=== PATIENT | male | born 1960 | race Caucasian/White ===

== ENCOUNTER 2017-09-22 19:06 | Emergency (ER) | payer SELFPAY ==
[2017-09-22 19:09] VITALS: BP 139/106; PULSE 114; RESP 20; TEMP 37.1; O2SAT 97; BMI 25.0
[2017-09-22] MEDS: 0.9% Normal Saline 1,000 ML 1000 ML IV (20:09)
[2017-09-22] MEDS: Ondansetron 4 MG/2 ML Vial IV (20:09)
[2017-09-22 20:31] LABS: Absolute Lymphocyte Count 0.34 X10^3/ul (0.83-4.51); Absolute Neutrophil Count 12.6 X10^3/uL (2.0-7.7); Basophil# 0.02 X10^3/uL; Basophil% 0.1 % (0-1); Differential Indicated SCAN CRITERIA MET; Eosinophil# 0.01 X10^3/uL; Eosinophils% 0.1 % (0-5); Hematocrit 49.3 % (40-54); Hemoglobin 16.5 g/dl (13.0-16.5); Lymphocyte # 0.34 X10^3/ul (4.0); Lymphocyte % 2.5 % (19-41); Mean Corp Hgb Conc 33.5 g/gl (32-36); Mean Corpuscular Hgb 30.8 pg (27.0-32.0); Mean Corpuscular Volume 92.1 fL (80-94); Mean Platelet Vol. 12.4 fl (6.2-12.0); Monocyte# 0.65 X10^3/uL; Monocyte% 4.7 % (0-10); Neutrophil % 92.1 % (47-70); POSITIVE COUNT NO; POSITIVE DIFFERENTIAL YES; POSITIVE MORPHOLOGY NO; Platelet Count 172 K/mm3 (150-450); RBC Distribution Width CV 13.2 % (11.6-14.6); RBC Distribution Width SD 44.3 fl (35.1-43.9); Red Blood Count 5.35 M/mm3 (4.6-6.2); White Blood Count 13.7 K/mm3 (4.4-11.0)
[2017-09-22 20:36] LABS: Anion Gap 9 (5-15); BUN 27 mg/dL (7-18); BUN/Creat Ratio 27.4 RATIO (10-20); Chloride 107 mmol/L (98-107); Creatinine, Serum 0.98 mg/dL (0.70-1.30); EST Glomerular Filtration Rate 83 mL/min (>60); Est Glom Filt Rate - Afr Amer 100 mL/min (>60); Estimated Creatinine Clearance 78.52 ml/min; Glucose 114 mg/dL (74-106); Sodium Level 138 mmol/L (136-145)
--- NOTE | 2017-09-22 21:37 | ED.VISSUMM ---
- ER Visit Summary Date of Service: 09/22/17 Chief Complaint: Nausea, vomiting, diarrhea History of Present Illness: The patient is a 57 M with nausea, vomiting, and diarrhea since last night. His sister with whom he lives is ill with similar. Patient's primary concern is that he cannot get his pain medication down. Patient is a history of reflux disease, hypertension, anxiety, depression. He has chronic lower abdominal and back pain. Physical Examination: Vital signs are significant only for heart rate of 114. He is afebrile. Head and neck examination is unremarkable. Heart is regular rate and rhythm. Lung sounds are clear. Abdomen is soft with mild diffuse tenderness palpation. There is no guarding or rebound. Hypoactive bowel sounds are noted throughout. Test Results: CBC was a white count 13.7 with 92% neutrophils. Chemistry studies are significant only for BUN 27. Emergency Department Course and Treatment: Patient was given morphine, Zofran, and IV fluids. On repeat evaluation he is sleeping comfortably. When I awaken him he states his symptoms are improved. On repeat abdominal exam he has continued lower abdominal tenderness that he states is chronic and unchanged from his normal. Patient be treated with Zofran. He can resume his normal home pain meds. Treatment Plan: [] Disposition: Discharge Impression: Gastroenteritis This note was generated with [employer] dictation software. It may contain incorrect words, spelling, and punctuation that were not noted in review of the chart prior to signing ED Disposition - Plan for ED Patient: Disposition: Home or Assisted Living Chief Complaint: General Illness Prescriptions: Ondansetron [Zofran Odt] 4 mg PO Q8H PRN PRN #10 tablet PRN Reason: Nausea Referrals: Ernie Rowell MD [STAFF PHYSICIAN] - As Needed
[2017-09-22 21:52] VITALS: BP 106/61
[2017-09-22] MEDS: Ondansetron ODT 4 MG Tablet PO (21:52)
== END 2017-09-22 21:53 | disposition home or self-care (01) ==
PROVIDERS: Emergency Provider Emergency Medicine
DX: K52.9 Noninfective gastroenteritis and colitis, unspecified (principal); K21.9 Gastro-esophageal reflux disease without esophagitis; R10.84 Generalized abdominal pain; M54.9 Dorsalgia, unspecified; G89.29 Other chronic pain; Z79.899 Other long term (current) drug therapy
CPT/HCPCS: 80048; 85025; 96361; 96374; 96375; 99283; A4216; J2405

== ENCOUNTER 2018-05-01 16:26 | Emergency (ER) | payer MEDICARE, SELFPAY ==
[2018-05-01 16:27] VITALS: BP 120/74; PULSE 74; RESP 17; TEMP 36.8; O2SAT 98; BMI 24.3
--- NOTE | 2018-05-01 16:39 | ED.VISSUMM ---
- ER Visit Summary Date of Service: 05/01/18 Chief Complaint: Laceration History of Present Illness: The patient is a 57 M with a laceration to his left forehead. This happened 3 hours prior to arrival. A pop can fell from the fridge and hit him. He did not lose consciousness. He is not on blood thinners. Denies any vision changes or other symptoms. No other injuries or complaints. Physical Examination: Patient is alert and oriented. Vitals normal. He has a circular 5 cm ful-thickness laceration through his left eyebrow and left forehead. Eye is normal. The remainder of his exam is unremarkable. Test Results: None indicated Emergency Department Course and Treatment: Tetanus updated. Wound cleaned and explored. Anesthetized. Sutured with 5-0 sutures x6. Patient will follow-up with primary care in 5-7 days for suture removal. Return for signs of infection or any other complications. Treatment Plan: As above Disposition: Discharged Impression: 1. Facial laceration 5 cm This note was generated with [employer] dictation software. It may contain incorrect words, spelling, and punctuation that were not noted in review of the chart prior to signing ED Disposition - Plan for ED Patient: Disposition: Home or Assisted Living Chief Complaint: Laceration Instructions: Suture Care Referrals: Radha Lloyd DO [STAFF PHYSICIAN] - 5 Days for suture removal
--- NOTE | 2018-05-01 16:42 | ED.DCSUM_ITS ---
- ER Visit Summary Date of Service: 05/01/18 Chief Complaint: Laceration History of Present Illness: The patient is a 57 M with a laceration to his left forehead. This happened 3 hours prior to arrival. A pop can fell from the fridge and hit him. He did not lose consciousness. He is not on blood thinner s. Denies any vision changes or other symptoms. No other injuries or complaints. Physical Examination: Patient is alert and oriented. Vitals normal. He has a circular 5 cm ful-thickness laceration through his left eyebrow and left forehead. Eye is normal. The remainder of his exam is unremarkable. Test Results: None indicated Emergency Department Course and Treatment: Tetanus updated. Wound cleaned and explored. Anesthetized. Sutured with 5-0 sutures x6. Patient will follow-up with primary care in 5-7 days for suture removal. Return for signs of infection or any other complications. Treatment Plan: As above Disposition: Discharged Impression: 1. Facial laceration 5 cm This note was generated with [employer] dictation software. It may contain incorrect words, spelling, and punctuation that were not noted in review of the chart prior to signing ED Disposition - Plan for ED Patient: Disposition: Home or Assisted Living Chief Complaint: Laceration Instructions: Suture Care Referrals: Radha Lloyd DO [STAFF PHYSICIAN] - 5 Days for suture removal
--- NOTE | 2018-05-01 16:42 | ED.DEP ---
ED Disposition - Plan for ED Patient: Disposition: Against Medical Advice Chief Complaint: Laceration Instructions: Suture Care Referrals: Radha Lloyd DO [STAFF PHYSICIAN] - 5 Days for suture removal
[2018-05-01 16:48] VITALS: BP 115/68; PULSE 80; RESP 14; O2SAT 98
[2018-05-01] MEDS: Diphth,Pertuss(Acell),Tet Vac 0.5 ML Vial IM (16:54)
[2018-05-01 17:16] VITALS: BP 125/78; PULSE 85; RESP 14; O2SAT 98
== END 2018-05-01 17:35 | disposition home or self-care (01) ==
LOC: ED 16:58
PROVIDERS: Emergency Provider Emergency Medicine
DX: S01.81XA Laceration without foreign body of other part of head, initial encounter (principal); W22.8XXA Striking against or struck by other objects, initial encounter; Y93.9 Activity, unspecified; Y92.9 Unspecified place or not applicable
CPT/HCPCS: 12011; 90471; 90715; 99283

== ENCOUNTER 2020-07-26 13:27 | Emergency (ER) | payer MEDICARE, SELFPAY ==
[2020-07-26 13:28] VITALS: BP 142/85; PULSE 83; RESP 18; TEMP 36.6; O2SAT 97; BMI 24.0
--- NOTE | 2020-07-26 14:15 | RAD_ITS ---
STUDY: X-RAY - LUMBAR SPINE REASON FOR EXAM: Male, 60 years old. Low back pain, weakness TECHNIQUE: 3 view(s) of the lumbar spine were obtained. COMPARISON: None FINDINGS: Normal lumbar lordosis. There is a minimal dextroscoliosis of the lumbar spine. There is a normal alignment of the vertebrae. There is multilevel endplate spondylosis of the lumbar vertebrae. There is multi-level degenerative disc disease with multi-level disc space narrowing. The soft tissue structures are unremarkable. RAD/Lumbar Spine 2 or 3 Views IMPRESSION: Degenerative changes of the spine, as detailed above. Electronically Signed: Adrian Foster, at 14:40 EST , Service support ,
--- NOTE | 2020-07-26 14:15 | ED.VIS.GEN ---
History of Present Illness Chief Complaint: Weakness Informant: Patient Narrative: Patient is a 60-year-old male who presents the emergency department for acute on chronic exacerbation of his low back pain. He has had this for years now. He has seen a specialist up in [place] for this issue. He actually has a new appointment scheduled for August 12. States his pain has become more severe causing him to come into the ED today. The pain does go down both of his legs on the sides. He also gets a numb sensation as well. He has been taking gabapentin for this but it has not been getting much relief lately. He denies any urinary retention. No saddle anesthesia. He does have chronic neck issues as well. States that they were thinking about doing injections versus surgery. He denies any falls or injury. Denies any fevers or chills. No abdominal pain or chest pain. Past Medical History - Allergies and Home Meds Allergies/Adverse Reactions: Allergies No Known Allergies Allergy (Verified 07/26/20 13:31) Primary Care Physician: Care Physician,No Primary [Primary Care Provider] - 2 Days Prior records reviewed: Yes Surgical History: - Smoking Status: Never smoker - Family History Maternal Family History: Family History (Last Updated 05/08/18 @ 12:13 by Cheyanne Chavez) Other CVA (cerebral vascular accident) Cancer Diabetes Family History: Reports: Diabetes, Hypertension Paternal Family History: Family History (Last Updated 05/08/18 @ 12:13 by Cheyanne Chavez) Other CVA (cerebral vascular accident) Cancer Diabetes Family History: Reports: Hypertension Review of Systems All systems negative except as indicated General: Denies: Chills, Fever, Sweats Eyes: Denies: Visual changes - bilaterally, Diplopia ENT: Denies: Rhinorrhea, Sore throat Cardiovascular: Denies: Chest pain, Palpitations Respiratory: Denies: Dyspnea, Cough, Dyspnea on exertion Gastrointestinal: Denies: Abdominal pain, Nausea, Vomiting, Diarrhea Genitourinary: Denies: Dysuria, Hematuria, Frequency Musculoskeletal: Reports: Back pain, Extremity Pain Skin: Denies: Rash, Wounds Neurological: Denies: Headache, Weakness, Numbness Physical Exam Vital Signs/Narrative: Vital Signs Temp Pulse Resp BP Pulse Ox 07/26/20 13:28 97.9 F 83 18 142/85 H 97 Inital Vital Signs reviewed: Yes General: Well nourished, Well developed, No Acute Distress Head: Normocephalic, Atraumatic Eyes: Perrl, EOMI ENT: Moist mucous membranes, No rhinorrhea Neck: Supple, Nontender Cardiovascular: Regular rate, Regular rhythm, No murmurs Respiratory: No distress, CTA bilaterally, Chest nontender Abdomen: Soft, Nontender, Nondistended, Normal bowel sounds Back: Normal Inspection, - - Patient's has tight paraspinal musculature of the lower lumbar spine. No step-off sign appreciated. There is a lipoma present in the mid back.. Negative for: Spinal tenderness Extremities: Nontender, No edema, - - Negative straight leg test but does have pain in the buttock region with leg raising. 5 out of 5 muscle strength. Sensation intact bilateral.. Negative for: Calf Tenderness Skin: Normal color, No rash Neurological: Alert, Oriented x3, Cranial nerves II-XII grossly intact, Normal Strength, Normal Sensation Psychological: Normal affect, Normal Mood Diagnostic/Tx/Re-eval X-ray of lumbar spine interpreted by myself. No acute fractures noted. There are degenerative changes throughout the lumbar spine. Normal spinal curvature present. Agree with radiologist interpretation. - Medical Decision Making Patient presents to the ED for acute on chronic exacerbation of his back pain. This is nontraumatic. Upon arrival to the emerge department vital signs within normal limits. He is a benign physical exam. No red flag symptoms for acute surgical emergency. Will check x-ray as he has not had any imaging done lately. Patient given [place] for symptomatic relief. Patient states that the pain is manageable but still present. He will have to follow-up with his PCP. We will write him a short prescription for [place]. He is to be careful when taking his gabapentin with this as it can make him tired. Warning signs and symptoms which to return to the ED are reviewed with him. He understands and is agreeable this plan. Patient able to walk out on his own power at discharge. All questions were answered. ED Disposition - Plan for ED Patient: Disposition: Home or Assisted Living Diagnosis: Low back pain Instructions: ED Back Pain (Acute or Chronic) Prescriptions: Hydrocodone/Acetaminophen [[place] 5-325 Tablet] 1 ea PO Q8H 3 Days #10 tab Transmission Status: Received by [facility] FELDMAN-[address] [facility] Referrals: Care Physician,No Primary [Primary Care Provider] - 2 Days
[2020-07-26] MEDS: HYDROcodone Bitartrate/Apap 5/325 Tablet PO (14:44)
[2020-07-26 15:45] VITALS: BP 143/74; PULSE 62; RESP 16; O2SAT 96
== END 2020-07-26 16:08 | disposition home or self-care (01) ==
PROVIDERS: Emergency Provider Emergency Medicine
DX: M54.5 Low back pain (principal)
CPT/HCPCS: 72100; 99283

== ENCOUNTER 2021-01-26 02:19 | Emergency (ER) | payer MEDICARE, SELFPAY ==
[2021-01-26 02:19] VITALS: BP 146/92; PULSE 68; RESP 18; TEMP 36.8; O2SAT 98; BMI 26.2
--- NOTE | 2021-01-26 02:49 | ED.VIS.BACK ---
HPI History of Present Illness Chief Complaint: Back Informant: patient Onset/Context/Timing Onset: Today Narrative Narrative: History of chronic back pain with pinched nerves followed by pain management through [facility]. Has had back injections in the past none recently. He is on gabapentin. He reports worsening pain this evening. Pain worse with movement. He was able to come with his sister however report he drove stating she does drive. He used her car. Today with some dysuria and discomfort. Having chills. No fevers. No loss of bowel or bladder control. States had bowel movements at home prior to arrival. States he does have a walker to ambulate with however states he tries not to use it so he does not become dependent on it. Prior similar symptoms: Yes and With Prior Back Pain PFSH PFSH Medical History Arthritis Home Medications gabapentin 600 mg PO TID 07/26/20 [History Last Taken Unknown] cephalexin 500 mg PO Q12 #14 cap 01/26/21 [Rx Last Taken Unknown] Allergy/AdvReac Type Severity Reaction Status Date / Time No Known Allergies Allergy Verified 01/26/21 02:22 Family History Other CVA (cerebral vascular accident) Cancer Diabetes Social History Smoking Status: Never smoker alcohol intake: never ROS ROS ED Constitutional Constitutional ED: Denies chills, fever(s) or sweats Eyes Eyes: Denies change in vision ENT ENT ED: Denies dysphagia or sore throat Cardiovascular Cardiovascular: Denies chest pain, leg edema, palpitations or racing heartbeat Respiratory/Chest Respiratory/Chest: Denies cough, dyspnea or dyspnea on exertion Gastrointestinal Gastrointestinal: Denies abdominal pain, diarrhea, nausea or vomiting Genitourinary Genitourinary ED: Denies dysuria, hematuria or urinary frequency Musculoskeletal Musculoskeletal: Reports back pain; Denies extremity pain or neck pain Integumentary Denies rash or wounds Neurologic Neurologic: Denies headache(s), paresthesias or weakness EXAM Physical Exam Const Vital Signs: 01/26/21 02:19 Temperature 98.3 F Temperature Source Oral Pulse Rate 68 Respiratory Rate 18 Blood Pressure 146/92 H Blood Pressure Mean 110 Pulse Ox 98 Oxygen Delivery Method Room Air Positive well nourished and well developed Constitutional Narrative: Mildly uncomfortable. General Appearance ED: well developed HEENT Reports moist mucous membranes normocephalic and atraumatic Eyes PERRL, EOMs intact bilaterally and conjunctivae normal General Eye ED: Yes normal appearance of both eyes Neck no lymphadenopathy and supple General: Negative for tenderness Chest Wall Chest: Negative for tenderness Resp normal respiratory effort and normal air movement Effort and Inspection: symmetric chest movement; Negative for respiratory distress Cardio regular rate, regular rhythm and no murmurs Peripheral Pulses: pulses 2+ throughout GI normal to inspection, nondistended, normoactive bowel sounds and non-tender Palpation: Negative for guarding or rebound tenderness present Back/Spine no CVA tenderness and no thoracic nor lumbar tenderness Back/Spine Narrative: No midline tenderness no rash. Straight leg test negative bilaterally. 2+ patellar reflexes bilaterally. No CVA tenderness. Extremity normal to inspection General Extremety ED: Negative for edema or tenderness General Extremity: Negative for edema Neuro oriented x3 and no sensory deficits noted Sensorium / Orientation: awake and alert Skin no rashes or lesions noted and no wounds MDM MDM MDM Narrative Medical decision making narrative: Patient acute on chronic back pain. No cauda equina symptoms. Is uncomfortable. Is given Toradol morphine. Symptoms more controlled he is able to ambulate. With the urine symptoms urine obtained noted leukocytes and blood. Reports dysuria. Culture sent. Patient started on Keflex. Follow-up with pain management as an outpatient and his PCP. All questions answered. Lab Data Attestation: I reviewed the patient's lab results. Labs: Laboratory Results - last 24 hr 01/26/21 03:00 Urine Color Yellow Urine Clarity Clear Urine pH 6.5 Ur Specific [place] 1.015 Urine Protein 15 H Urine Glucose (UA) Normal Urine Ketones Negative Urine Occult Blood 250 H Urine Nitrite Negative Urine Bilirubin Negative Urine Urobilinogen 4 H Ur Leukocyte Esterase 25 H Urine RBC 5-10 SEEN Urine WBC 0-5 SEEN Ur Squamous Epith Cells 0 SEEN Urine Bacteria 0 SEEN Urine Mucus 0 SEEN Discharge Plan Triage Chief Complaint: Back ED Provider: Nolan Cowart Dx/Rx/DC Orders Clinical Impression: Acute exacerbation of chronic low back pain, Urinary tract infection in male Instructions: Urinary Tract Infections in Men, ED Back Pain (Acute or Chronic) Prescriptions: New cephalexin 500 mg capsule 500 mg PO Q12 Qty: 14 RF: 0 No Action gabapentin 400 MG capsule 600 mg PO TID RF: 0 Primary Care Provider: Care Physician,No Primary Referrals: Care Physician,No Primary [Primary Care Provider] - Activity Restrictions/Additional Instructions: Follow-up with your pain doctors for further treatment as an outpatient. Take your antibiotic as prescribed. Prescription sent to your [facility]. Disposition Disposition: Home, Self Care
[2021-01-26] MEDS: Ketorolac 30 MG/ML Syringe IM (02:57)
[2021-01-26] MEDS: morphine 10 MG/ML Syringe 4 MG SC (02:57)
[2021-01-26 03:04] LABS: Bacteria 0 SEEN /hpf (None Seen); Mucous, Urine 0 SEEN /hpf (<or=2+); Squamous Epithelial Cells - UA 0 SEEN /hpf (0-5)
[2021-01-26 03:05] LABS: Color, Urine Yellow (Yellow); Glucose, Dipstick Normal (Normal); Ketone-Dipstick Negative (Negative); Leukocyte Esterase-Dipstick 25 /ul (Negative); Nitrite-Dipstick Negative (Negative); Occult Blood-Urine 250 /ul (Negative); Protein-Dipstick 15 mg/dl (Negative); Specific Gravity, Urine 1.015 (1.002-1.030); Urine Bilirubin Dipstick Negative (Negative); Urine Clarity Clear (Clear); Urine Urobilinogen 4 mg/dl (Normal); Urine pH 6.5 (5.0 - 8.0)
[2021-01-26 03:11] LABS: Red Blood Cells-Urine 5-10 SEEN /hpf (0-5); White Blood Cells 0-5 SEEN /hpf (0-5)
[2021-01-26] MEDS: Cephalexin 250 MG Capsule 500 MG PO (03:55)
== END 2021-01-26 04:24 | disposition home or self-care (01) ==
PROVIDERS: Emergency Provider Emergency Medicine
DX: M54.5 Low back pain (principal); G89.29 Other chronic pain; N39.0 Urinary tract infection, site not specified; Z79.899 Other long term (current) drug therapy
CPT/HCPCS: 81001; 87086; 96372; 96374; 99283; A4216

== ENCOUNTER 2022-04-12 21:28 | Emergency (ER) | payer MEDICARE, SELFPAY ==
[2022-04-12 21:29] VITALS: BP 130/64; PULSE 77; RESP 16; TEMP 36.6; O2SAT 98; BMI 25.6
--- NOTE | 2022-04-12 21:57 | EKG12_ITS ---
Test Reason : EDEMA Blood Pressure : / mmHG Vent. Rate : 068 BPM Atrial Rate : 068 BPM P-R Int : 138 ms QRS Dur : 082 ms QT Int : 402 ms P-R-T Axes : 068 008 027 degrees QTc Int : 427 ms Normal sinus rhythm Normal ECG Confirmed by MELIDA ORTEGA MD ([id number]), society editor TACOS SOLORZANO ([id number]) on 04/16/2022 10:49:18 AM Referred By: PL Confirmed By:MELIDA ORTEGA MD
--- NOTE | 2022-04-12 22:03 | ED.VIS.LOWEX ---
HPI History of Present Illness Chief Complaint: Edema Informant: patient and family Narrative Narrative: Patient presents with edema mostly of his left leg. Patient is not the best informant for details. It sounds like he has been getting swelling in the left leg for about 3 weeks. He states sometimes he gets swelling of his legs but never this bad. He has a small amount of swelling in the right leg but that is within his normal range. He denies fevers or chills. He denies injuries. He has no history of travel, surgery, immobilization, personal history of DVT. He does have a sister who reports prior DVTs. He is not having chest pain. He denies dyspnea. But he does have cough and states he has been having nasal congestion and feels as though he has a viral illness also. This has been going on for about 2 weeks. No hemoptysis. No syncope or presyncope. He takes gabapentin but is currently out. He denies any history of heart disease blood pressure diabetes or other chronic illnesses. [facility] Medical History Arthritis Home Medications gabapentin 400 mg capsule 600 mg PO TID 07/26/20 [History Last Taken Unknown] cephalexin 500 mg capsule 500 mg PO Q12 #14 caps 01/26/21 [Rx Last Taken Unknown] levofloxacin 500 mg tablet 500 mg PO DAILY #7 tabs 04/13/22 [Rx Last Taken Unknown] Allergy/AdvReac Type Severity Reaction Status Date / Time No Known Allergies Allergy Verified 04/12/22 21:33 Family History Other CVA (cerebral vascular accident) Cancer Diabetes Social History Smoking Status: Never smoker alcohol intake: never ROS ROS ED Constitutional Constitutional ED: Denies chills, fever(s) or subjective Eyes Eyes: Denies change in vision ENT ENT ED: Reports rhinorrhea; Denies ear pain or sore throat Cardiovascular Cardiovascular: Denies chest pain, palpitations or racing heartbeat Respiratory/Chest Respiratory/Chest: Reports cough and sputum; Denies dyspnea Gastrointestinal Gastrointestinal: Denies abdominal pain, nausea or vomiting Genitourinary Genitourinary ED: Denies hematuria Musculoskeletal Musculoskeletal: Reports other Details: Swelling of left leg as in history of present illness. ; Denies arthralgias, back pain, myalgias or neck pain Integumentary Denies rash Neurologic Neurologic: Denies headache(s), paresthesias or weakness Endocrine Endocrinology: Denies polydipsia or polyuria Hematologic/Lymphatic Hematologic/Lymphatic: Denies easy bleeding or easy bruising Allergic/Immunologic Allergic/Immunologic ED: Denies urticaria EXAM Physical Exam Const Vital Signs: 04/12/22 21:29 04/12/22 21:45 04/12/22 23:17 Temperature 97.9 F Temperature Source Temporal Pulse Rate 77 66 Respiratory Rate 16 16 Respiratory Effort Short of Breath Respiratory Pattern Normal Blood Pressure 130/64 H 143/73 H Blood Pressure Mean 86 96 Pulse Ox 98 98 Oxygen Delivery Method Room Air Room Air Positive well nourished and well developed General Appearance ED: well developed and NAD HEENT Reports moist mucous membranes Chest Wall inspection of chest normal and palpation of chest normal Resp normal respiratory effort, no retractions and clear to auscultation bilaterally Resp Narrative: No pain with deep breath. Auscultation: Negative for rales, rhonchi or wheezes Cardio regular rate, regular rhythm and no murmurs Rate: Negative for tachycardic Rhythm: Negative for abnormal rhythm GI non-tender, non-distended and no masses Back/Spine no CVA tenderness Extremity Extremity Narrative: Patient has trace to +1 edema of the right foot and ankle area. He states this is normal. However, he has had +2 edema and some mild erythema of the left lower leg. This really starts with edema just below the knee and some erythema of the lower pace and foot. It is not hot. No vesicles. I see no break in the skin or indication of acute infection. Neuro Sensorium / Orientation: alert Psych mental status grossly normal Skin Skin Narrative: See above. Lesions: no lesions MDM MDM MDM Narrative Medical decision making narrative: Patient CBC shows normal white count hemoglobin and platelets. D-dimer was elevated above baseline but age-adjusted is not elevated. Electrolytes show no marked abnormalities. Potassium was slightly low and is replaced. Slight elevation of BUN/creatinine ratio. He will be given IV fluids. Lactate is normal. Chest x-ray showed some atelectasis at his left base. COVID was negative. Even of the D-dimer is not elevated age-adjusted, this patient has unilateral edema, some pulmonary symptoms and atelectasis at the lung base. I think it is appropriate to do a CTA on this patient given this unique constellation. He does not have positive Hestia criteria. If he does have a pulmonary embolus, I think he likely could be discharged on anticoagulation. I am pending the study at this time. Patient CT does not show pulmonary embolus. There is a 9 mm spiculated nodule in the right upper lobe. I explained this to the patient. This will need follow-up even of all his symptoms resolved. This is very important to get further evaluation. There is also some groundglass opacity in the left lower lobe. This could be infectious. Since the patient has had some mild cough and felt like he was sick we will treat this as a potential pneumonia. Levaquin should also be reasonable coverage for any cellulitis although I do not think his leg likely represents this. We will have outpatient ultrasound as his legs still needs further evaluation. Lab Data Attestation: I reviewed the patient's lab results. Labs: Laboratory Results - last 24 hr 04/12/22 04/12/22 04/12/22 21:05 21:55 21:55 WBC 6.3 RBC 4.52 L Hgb 13.8 Hct 42.4 MCV 93.8 MCH 30.5 MCHC 32.5 RDW Std Deviation 44.7 H RDW Coeff of Coleen 13.0 Plt Count 208 MPV 11.5 Immature Gran % (Auto) 0.200 Neut % (Auto) 59.1 Lymph % (Auto) 24.2 [place] % (Auto) 14.1 H Eos % (Auto) 2.1 Baso % (Auto) 0.3 Absolute Neuts (auto) 3.7 Absolute Lymphs (auto) 1.51 Nucleated RBC % 0 D-Dimer Quant (PE/DVT) 0.51 H* Sodium Potassium Chloride Carbon Dioxide Anion Gap BUN Creatinine Estim Creat Clear Calc Est GFR (MDRD) Af Amer Est GFR (MDRD) Non-Af BUN/Creatinine Ratio Glucose Lactic Acid Calcium Troponin I High Sens B-Natriuretic Peptide 29.4 04/12/22 04/12/22 21:55 21:55 WBC RBC Hgb Hct MCV MCH MCHC RDW Std Deviation RDW Coeff of Coleen Plt Count MPV Immature Gran % (Auto) Neut % (Auto) Lymph % (Auto) [place] % (Auto) Eos % (Auto) Baso % (Auto) Absolute Neuts (auto) Absolute Lymphs (auto) Nucleated RBC % D-Dimer Quant (PE/DVT) Sodium 142 Potassium 3.3 L Chloride 108 H Carbon Dioxide 27.0 Anion Gap 7 BUN 17 Creatinine 0.71 Estim Creat Clear Calc 82.24 Est GFR (MDRD) Af Amer 143 Est GFR (MDRD) Non-Af 118 BUN/Creatinine Ratio 23.8 H Glucose 95 Lactic Acid 1.4 Calcium 9.0 Troponin I High Sens 6 B-Natriuretic Peptide Radiography Diagnostic Testing: Clinical Impression(s) from Imaging Studies Chest X-Ray 04/12/22 22:15 IMPRESSION: Left lung base atelectasis with mild hypoinflation. Electronically Signed: Chance Lilly MD at 22:39 EDT , Chest CTA 04/12/22 22:43 IMPRESSION: 1. Groundglass opacities at the posterior aspect of the left lower lobe. This may represent an inflammatory or infectious process. 2. Spiculated solid nodule without calcification involving the right upper lobe measuring 9 mm. This can be further investigated with PET/CT. 3. No PE, aortic dissection, or aortic dissection. Electronically Signed: Claudy Johnson MD at 0:09 EDT , EKG Initial EKG: Comments: EKG done for cough and work-up of peripheral edema. EKG shows normal sinus rhythm with an overall rate of 68. No ventricular ectopy. No acute ST elevation or depression. MT interval, QRS duration and QTc normal. Discharge Plan Triage Chief Complaint: Edema ED Provider: Maximilian Vail Dx/Rx/DC Orders Clinical Impression: Leg edema, left, Pneumonia Instructions: ED Peripheral Edema, Unilateral, ED Pneumonia (Adult) Prescriptions: New levofloxacin [levofloxacin] 500 mg tablet 500 mg PO DAILY Qty: 7 0RF No Action gabapentin 400 MG capsule 600 mg PO TID cephalexin 500 mg capsule 500 mg PO Q12 Qty: 14 0RF Other Ambulatory Orders: Venous Duplex US - [place]ell Extrem (Stat) Facility: [facility] - Location: [facility] Ordered By: Dr. Maximilian Vail Primary Care Provider: Care Physician,No Primary Referrals: Radha Lloyd DO [Med Staff - [employer]] - 3-5 Days Care Physician,No Primary [Primary Care Provider] - Activity Restrictions/Additional Instructions: Your CAT scan showed a spot in the right upper lobe that needs further evaluation. Even if all your symptoms resolve, please follow-up with primary physician as this lesion needs further evaluation. We cannot do an ultrasound of your leg tonight. I have this ordered as an outpatient study tomorrow. Disposition Disposition: Home, Self Care
--- NOTE | 2022-04-12 22:15 | RAD_ITS ---
STUDY: X-RAY CHEST REASON FOR EXAM: Male, 61 years old. Cough TECHNIQUE: Portable, upright, AP chest radiograph COMPARISON: None. FINDINGS: Left lung base atelectasis and mild hypoinflation. The right lung appears clear. There is no demonstrated pleural abnormality. Normal size heart. Normal mediastinum and antonia. Normal visualized pulmonary arteries. Normal visualized aortic arch and descending thoracic aorta. There is no demonstrated abnormality of the visualized soft tissue structures of the upper abdomen. RAD/Chest 1 View (Portable) IMPRESSION: Left lung base atelectasis with mild hypoinflation. Electronically Signed: Chance Lilly MD at 22:39 EDT ,
[2022-04-12 22:24] LABS: Absolute Lymphocyte Count 1.51 X10^3/uL (0.83-4.51); Absolute Neutrophil Count 3.7 X10^3/uL (2.0-7.7); Basophil# 0.02 X10^3/uL; Basophil% 0.3 % (0-1); Eosinophil# 0.13 X10^3/uL; Eosinophils% 2.1 % (0-5); Hematocrit 42.4 % (40-54); Hemoglobin 13.8 g/dL (13.0-16.5); Lymphocyte # 1.51 X10^3/ul (0.83-4.51); Lymphocyte % 24.2 % (19-41); Mean Corp Hgb Conc 32.5 g/dL (32-36); Mean Corpuscular Hgb 30.5 pg (27.0-32.0); Mean Corpuscular Volume 93.8 fL (80-94); Mean Platelet Vol. 11.5 fl (6.2-12.0); Monocyte# 0.88 X10^3/uL; Monocyte% 14.1 % (0-10); NRBC Flagged by Analyzer 0 % (0-5); Neutrophil % 59.1 % (47-70); Platelet Count 208 K/mm3 (150-450); RBC Distribution Width SD 44.7 fl (35.1-43.9); Red Blood Count 4.52 M/mm3 (4.6-6.2); White Blood Count 6.3 K/mm3 (4.4-11.0)
[2022-04-12 22:39] LABS: D-Dimer Quantitative (DVT/PE) 0.51 FEU/ug/m (0.27-0.49)
[2022-04-12 22:42] LABS: Anion Gap 7 (5-15); BUN 17 mg/dL (7-18); BUN/Creat Ratio 23.8 RATIO (10-20); Chloride 108 mmol/L (98-107); Creatinine, Serum 0.71 mg/dL (0.70-1.30); EST Glomerular Filtration Rate 118 mL/min (>60); Est Glom Filt Rate - Afr Amer 143 mL/min (>60); Estimated Creatinine Clearance 82.24 ml/min; Glucose 95 mg/dL (74-106); Potassium 3.3 mmol/L (3.5-5.1); Sodium Level 142 mmol/L (136-145); Troponin-I HS 6 pg/mL (3.0-78.0)
--- NOTE | 2022-04-12 22:43 | CT_ITS ---
EXAM: CT ANGIOGRAPHY CHEST WITHOUT AND WITH INTRAVENOUS CONTRAST CLINICAL INDICATION: PE TECHNIQUE: Helically acquired angiography images were obtained of the chest without and with intravenous contrast. CTDIvol = ( 16.46 ) mGy, DLP = ( 414.43 ) mGycm This CT exam was performed using one or more of the following dose reduction techniques: automated exposure control, adjustment of the mA and/or kV according to patient size, and/or use of iterative reconstruction technique. This report was created using [employer] report generation technology. MIP reconstructed images were created and reviewed. CONTRAST: IV 100mL [id number] COMPARISON: None. FINDINGS: PULMONARY ARTERIES: Unremarkable. Normal in caliber. No evidence of pulmonary embolism. AORTA: Unremarkable. Normal in caliber. No evidence of dissection. GREAT VESSELS OF AORTIC ARCH: Unremarkable. Normal in caliber. No evidence of dissection. LUNGS AND PLEURAL SPACES: Spiculated solid nodule without calcification involving the right upper lobe measuring 9 mm. This can be further investigated with PET/CT. Groundglass opacities at the posterior aspect of the left lower lobe. This may represent an inflammatory or infectious process. Mild subsegmental atelectasis at the posterior aspect of the right lower lobe. No pleural effusion or thickening. No pneumothorax. HEART: Unremarkable. Heart size is normal. No pericardial effusion. No signs of right heart strain, ratio of right ventricle to left ventricle measures less than 1. MEDIASTINUM: Unremarkable. No mediastinal or hilar adenopathy. Esophagus is unremarkable. No hiatal hernia. THYROID: 1.8 cm ovoid circumscribed hypodense nodule involving the right thyroid gland. This can be better evaluated with thyroid ultrasound. BONES/JOINTS: Healing rib fractures bilaterally. No suspicious lytic or blastic abnormality. CT/CTA Chest W/WO Contrast IMPRESSION: 1. Groundglass opacities at the posterior aspect of the left lower lobe. This may represent an inflammatory or infectious process. 2. Spiculated solid nodule without calcification involving the right upper lobe measuring 9 mm. This can be further investigated with PET/CT. 3. No PE, aortic dissection, or aortic dissection. Electronically Signed: Claudy Johnson MD at 0:09 EDT ,
[2022-04-12 22:46] LABS: Lactic Acid 1.4 mmol/L (0.4-1.9)
[2022-04-12 23:17] VITALS: BP 143/73; PULSE 66; RESP 16; O2SAT 98
[2022-04-12] MEDS: Potassium Chloride Oral Tablet 20 MEQ PO (23:42)
[2022-04-12 23:47] LABS: BNP,B-Type NATRIURETIC PEPTIDE 29.4 pg/mL (0-100)
[2022-04-13 00:18] VITALS: BP 143/73; PULSE 63; RESP 16; O2SAT 99
[2022-04-13] MEDS: levoFLOXacin 750 MG Tablet PO (00:34)
== END 2022-04-13 00:58 | disposition home or self-care (01) ==
PROVIDERS: Emergency Provider Emergency Medicine; Visit Provider Emergency Medicine
DX: R60.0 Localized edema (principal); J18.9 Pneumonia, unspecified organism
CPT/HCPCS: 71045; 71275; 80048; 83605; 83880; 84484; 85025; 85379; 87428; 93005; 99284; J7040; Q9967; A4216

== ENCOUNTER → 2022-04-13 | Outpatient (CLI) | payer MEDICARE, SELFPAY ==
--- NOTE | 2022-04-13 14:15 | VDLE_ITS ---
Reason For Study: BLE SWELLING RIGHT LEFT GSV is normal. GSV is normal. CFV is compressible, spontaneous, phasic, CFV is compressible, spontaneous, phasic, competent and demonstrates normal competent, and demonstrates normal augmentation. augmentation. FV is compressible, spontaneous, phasic, FV is compressible, spontaneous, phasic, competent and demonstrates normal competent and demonstrates normal augmentation. augmentation. POP V is compressible, spontaneous, phasic, POP V is compressible, spontaneous, phasic, competent and demonstrates normal competent and demonstrates normal augmentation. augmentation. T/P Trunk is compressible. T/P Trunk is compressible. PTV is compressible. PTV is compressible. Procedure This is a venous duplex using B-mode, color flow and spectral Doppler. Exam performed in department. The study was technically difficult. PT had difficulty with probe pressure. Unable to visualize the bilateral Peroneal Veins. VL/Venous Duplex US - [place] Extrem Interpretation Summary Deep veins of the lower extremities are bilaterally patent and compressible seg mentally. There is no evidence of deep vein thrombosis on either side. Valvular competence appears in tact within the proximal deep venous systems bilaterally. The great saphenous veins appear bila terally patent and compressible segmentally. The peroneal veins were not visualized on either side . Ordering Physician: Maximilian Vail Referring Physician: NO PCP Performed By: Sofie Scanlon, PK, RVT
== END | disposition home or self-care (01) ==
PROVIDERS: Referring Provider Emergency Medicine; Visit Provider Emergency Medicine
DX: R60.0 Localized edema (principal)
CPT/HCPCS: 93970

== ENCOUNTER 2022-05-12 19:25 | Emergency (ER) | payer MEDICARE, SELFPAY ==
[2022-05-12 19:26] VITALS: BP 155/82; PULSE 71; RESP 16; TEMP 36.6; O2SAT 100; BMI 25.4
--- NOTE | 2022-05-12 20:12 | EDS_ITS ---
HPI History of Present Illness Chief Complaint: Edema Detail of Chief Complaint: Lower extremity edema left greater than right Informant: patient Onset/Context/Timing Onset: Weeks Context: Gradual Onset Timing: Continuous Current Severity: Mild Maximum Severity: Mild Narrative Narrative: 61-year-old male history of lower extremity edema for weeks to months. He has had ultrasounds done 3 to 4 weeks ago which were negative for any signs of DVT. States that he has had some chills. And he just wanted reevaluated. There is redness on his left lower leg. Denies any fever. Prior similar symptoms: Yes Recent Illness/Hospitalization: No PFSH PFSH Medical History Arthritis Home Medications gabapentin 400 mg capsule 600 mg PO TID 07/26/20 [History Last Taken Unknown] acetaminophen 325 mg tablet (Tylenol) 325 mg PO Q6H PRN Pain 05/12/22 [History Last Taken Unknown] cephalexin 500 mg capsule 500 mg PO Q6 #40 caps 05/12/22 [Rx Last Taken Unknown] Allergy/AdvReac Type Severity Reaction Status Date / Time No Known Allergies Allergy Verified 05/12/22 19:28 Family History Other CVA (cerebral vascular accident) Cancer Diabetes Social History Smoking Status: Never smoker alcohol intake: never ROS ROS ED ROS Narrative Lower leg swelling. Review of Systems ROS Unobtainable: Denies due to encephalopathy Constitutional Constitutional ED: Reports chills; Denies fever(s) Eyes Eyes: Denies blurry vision ENT ENT ED: Denies ear pain Cardiovascular Cardiovascular: Denies chest pain Respiratory/Chest Respiratory/Chest: Denies cough or dyspnea Gastrointestinal Gastrointestinal: Denies abdominal pain Genitourinary Genitourinary ED: Denies dysuria Musculoskeletal Musculoskeletal: Denies arthralgias Integumentary Denies abscess or Abrasions Neurologic Neurologic: Denies headache(s) Psychiatric Psychiatric: Denies anxiety Endocrine Endocrinology: Denies cold intolerance Hematologic/Lymphatic Hematologic/Lymphatic: Reports none Allergic/Immunologic Allergic/Immunologic ED: Denies mouth swelling or tongue swelling EXAM Physical Exam Narrative Exam Narrative: Well-appearing C1-year-old male no acute distress. Vital signs stable afebrile. Pulse ox 9%. No hypoxia. H EENT exam unremarkable. Posterior pharynx normal. Neck nontender. No JVD. Lungs clear to auscultation. Heart regular rate and rhythm rate about 70 no murmur. Abdomen soft nontender. Moving all 4 extremities. Both lower extremities have edema. Left greater than right. Left has some redness and warmth may be an early cellulitis. Dorsi plantar flexion is intact. Patient is awake and alert. No motor deficits. Const Vital Signs: 05/12/22 19:26 05/12/22 19:52 Temperature 98 F Temperature Source Temporal Pulse Rate 71 Respiratory Rate 16 Respiratory Effort Normal Respiratory Pattern Normal Blood Pressure 155/82 H Blood Pressure Mean 106 Pulse Ox 100 Oxygen Delivery Method Room Air Positive well nourished and well developed; Negative for obese, cachectic, contractures or unkempt General Appearance ED: well developed and NAD; Negative for unkempt, cachectic, contractures, cyanotic or diaphoretic Nutritional Appearance: Negative for cachectic or obese HEENT Reports moist mucous membranes; Denies dry mucous membranes Negative for trauma or tenderness Mouth ED: No dry mucous membranes Mouth: No dry mucous membranes Eyes PERRL and EOMs intact bilaterally General Eye ED: Negative for pale conjunctiva or scleral icterus Neck no lymphadenopathy, supple and no JVD General: Negative for tenderness Lymph Lymphatic: Negative for other Chest Wall inspection of chest normal and palpation of chest normal Resp normal respiratory effort and clear to auscultation bilaterally Effort and Inspection: Negative for retractions Auscultation: Negative for rales, rhonchi or wheezes Cardio regular rate, regular rhythm, S1 normal heart sound, S2 normal heart sound and no murmurs Palpation: Negative for palpable S3 Rate: Negative for bradycardia Rhythm: Negative for abnormal rhythm GI normal to inspection, nondistended, normoactive bowel sounds, non-tender, non- distended and no masses Inspection: Negative for abdominal distention Auscultation: normoactive bowel sounds Palpation: soft; Negative for tender Back/Spine no CVA tenderness General Back: Negative for CVA tenderness Cervical Spine: Negative for cervical spine tenderness Thoracic Spine / Upper Back: Negative for thoracic spinal tenderness Lumbar Spine / Lower Back: Negative for lumbar spinal tenderness Extremity Negative for normal to inspection Extremity Narrative: Bilateral lower extremity edema. Left greater than right. Redness on the left anterior lower leg consistent with cellulitis. No streaks. No lymphadenopathy in the left groin. Both legs have normal motor strength. General Extremety ED: Yes edema and tenderness General Extremity: edema Neuro oriented x3 Sensorium / Orientation: alert; Negative for orientation impaired, lethargic or stuporous Motor Exam: strength 5/5 throughout Psych mental status grossly normal Appearance: Negative for unkempt Attitude: No agitated Mood & Affect: Negative for depressed, anxious or tearful Skin No no rashes or lesions noted and no wounds Lesions: No lesion noted Rashes: rashes noted Trauma: Negative for abrasion Wounds: Negative for wounds noted MDM MDM MDM Narrative Medical decision making narrative: Patient with acute on chronic lower extremity edema. Ultrasounds have been ruled out several weeks ago. He may have an early cellulitis left lower leg. Screening labs being obtained. Repeat exam at 10:20 PM I do believe patient's left lower leg is cellulitis. She will be given a dose of Keflex here. And discharged to home with a prescription for Keflex 4 times a day for 10 days. Return if worse. Follow-up with his doctor. He does not look septic or toxic. I discussed with him the diagnosis and treatment. Lab Data Attestation: I reviewed the patient's lab results. Lab results narrative: CBC shows a white count of 6. H&H of 13 and 42. Electrolytes unremarkable gap of 7 BUN/creatinine 21 0.7. Liver enzymes normal. Labs: Laboratory Results - last 24 hr 05/12/22 05/12/22 20:10 20:10 WBC 6.0 RBC 4.53 L Hgb 13.7 Hct 42.5 MCV 93.8 MCH 30.2 MCHC 32.2 RDW Std Deviation 44.4 H RDW Coeff of Coleen 12.9 Plt Count 213 MPV 11.5 Immature Gran % (Auto) 0.500 Neut % (Auto) 71.8 H Lymph % (Auto) 12.4 L [place] % (Auto) 13.5 H Eos % (Auto) 1.3 Baso % (Auto) 0.5 Absolute Neuts (auto) 4.3 Absolute Lymphs (auto) 0.74 L Nucleated RBC % 0 Sodium 141 Potassium 3.9 Chloride 107 Carbon Dioxide 27.0 Anion Gap 7 BUN 21 H Creatinine 0.70 Estim Creat Clear Calc 79.90 Est GFR (MDRD) Af Amer 147 Est GFR (MDRD) Non-Af 122 BUN/Creatinine Ratio 30.2 H Glucose 89 Calcium 9.2 Total Bilirubin 0.40 AST 20 ALT 31 Alkaline Phosphatase 53 Total Protein 7.1 Albumin 3.7 Globulin 3.4 Albumin/Globulin Ratio 1.1 Discharge Plan Triage Chief Complaint: Edema ED Provider: Mike York Dx/Rx/DC Orders Clinical Impression: Left leg cellulitis, Edema Instructions: ED Cellulitis Prescriptions: New cephalexin 500 mg capsule 500 mg PO Q6 Qty: 40 0RF No Action gabapentin 400 MG capsule 600 mg PO TID acetaminophen [Tylenol] 325 mg Tablet 325 mg PO Q6H PRN (Reason: Pain) Primary Care Provider: Care Physician,No Primary Referrals: Care Physician,No Primary [Primary Care Provider] - Activity Restrictions/Additional Instructions: Follow-up with your doctor this coming week. Return if worse. Keflex, the antibiotic, 4 times a day till gone. Disposition Disposition: Home, Self Care
[2022-05-12 20:40] LABS: Absolute Lymphocyte Count 0.74 X10^3/uL (0.83-4.51); Absolute Neutrophil Count 4.3 X10^3/uL (2.0-7.7); Basophil# 0.03 X10^3/uL; Basophil% 0.5 % (0-1); Eosinophil# 0.08 X10^3/uL; Eosinophils% 1.3 % (0-5); Hematocrit 42.5 % (40-54); Hemoglobin 13.7 g/dL (13.0-16.5); Lymphocyte # 0.74 X10^3/ul (0.83-4.51); Lymphocyte % 12.4 % (19-41); Mean Corp Hgb Conc 32.2 g/dL (32-36); Mean Corpuscular Hgb 30.2 pg (27.0-32.0); Mean Corpuscular Volume 93.8 fL (80-94); Mean Platelet Vol. 11.5 fl (6.2-12.0); Monocyte# 0.81 X10^3/uL; Monocyte% 13.5 % (0-10); NRBC Flagged by Analyzer 0 % (0-5); Neutrophil % 71.8 % (47-70); Platelet Count 213 K/mm3 (150-450); RBC Distribution Width CV 12.9 % (11.6-14.6); RBC Distribution Width SD 44.4 fl (35.1-43.9); Red Blood Count 4.53 M/mm3 (4.6-6.2)
[2022-05-12 21:06] LABS: ALB/GLOB Ratio 1.1 RATIO (0.9-2.4); AST(SGOT) 20 U/L (15-37); Alanine Aminotransfer ALT/SGPT 31 U/L (16-61); Albumin, Serum 3.7 g/dL (3.2-5.0); Alkaline Phosphatase 53 U/L (45-117); Anion Gap 7 (5-15); BUN 21 mg/dL (7-18); BUN/Creat Ratio 30.2 RATIO (10-20); Calcium,Total 9.2 mg/dL (8.5-10.1); Chloride 107 mmol/L (98-107); EST Glomerular Filtration Rate 122 mL/min (>60); Est Glom Filt Rate - Afr Amer 147 mL/min (>60); Globulin 3.4 g/dL (2.2-4.2); Glucose 89 mg/dL (74-106); Potassium 3.9 mmol/L (3.5-5.1); Protein, Total 7.1 g/dL (6.4-8.2); Sodium Level 141 mmol/L (136-145)
[2022-05-12 21:25] VITALS: BP 137/85; PULSE 100; RESP 20; TEMP 36.6; O2SAT 98
[2022-05-12] MEDS: Cephalexin 250 MG Capsule 500 MG PO (22:48)
[2022-05-12 22:55] VITALS: BP 135/88; PULSE 98; RESP 18; TEMP 36.5; O2SAT 98
--- NOTE | 2022-05-12 23:22 | NURSING ---
WAITING FOR MEDS TO BED.
--- NOTE | 2022-05-12 23:34 | NURSING ---
MED TO BED DELIVERED. PT AND FAMILY EDUCATED ON MEDS AND DC HOME. VERBALIZED UNDERSTANDING.
== END 2022-05-12 23:34 | disposition home or self-care (01) ==
PROVIDERS: Emergency Provider Emergency Medicine; Visit Provider Emergency Medicine
DX: L03.116 Cellulitis of left lower limb (principal); R60.0 Localized edema; M19.90 Unspecified osteoarthritis, unspecified site; Z79.899 Other long term (current) drug therapy
CPT/HCPCS: 80053; 85025; 99284; A4216

== ENCOUNTER 2022-09-22 08:12 | Emergency (ER) | payer MEDICARE, SELFPAY ==
[2022-09-22 08:13] VITALS: BP 176/90; PULSE 82; RESP 16; TEMP 36.6; O2SAT 98; BMI 27.4
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
[2022-09-22] MEDS: HYDROcodone Bitartrate/Apap 5/325 Tablet PO (08:42)
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
[2022-09-22 08:44] VITALS: BP 118/78; PULSE 78; RESP 16; TEMP 36.6; O2SAT 99
--- NOTE | 2022-09-22 09:21 | ED.RN ---
hro, officer dominique to talked to patient .
--- NOTE | 2022-09-22 09:38 | ED.RN ---
officer dominique finished talking to pt. states pt. good to go.
== END 2022-09-22 09:38 | disposition home or self-care (01) ==
PROVIDERS: Emergency Provider Emergency Medicine; Visit Provider Emergency Medicine
DX: S20.229A Contusion of unspecified back wall of thorax, initial encounter (principal); Y04.8XXA Assault by other bodily force, initial encounter
CPT/HCPCS: 99283; J7030

== ENCOUNTER 2022-09-28 07:22 | Emergency (ER) | payer MEDICARE, SELFPAY ==
[2022-09-28 07:22] VITALS: BP 144/89; PULSE 69; RESP 18; TEMP 35.7; O2SAT 97; BMI 28.5
--- NOTE | 2022-09-28 07:39 | RAD_ITS ---
STUDY: X-RAY - CERVICAL SPINE REASON FOR EXAM: Male, 62 years old. Injury/Pain due to a fall. TECHNIQUE: 3 view(s) of the cervical spine were obtained. COMPARISON: None FINDINGS: Normal anterior atlantoaxial articulation. Normal odontoid process. There is straightening of the normal cervical lordosis. Anterior spondylosis and disc space narrowing at the C4-C5 and C5-C6 levels. Normal visualized intervertebral neuroforamina. The soft tissue structures are unremarkable. RAD/Cerv Spine 2 or 3 Views IMPRESSION: Straightening of the normal cervical lordosis. Disc space narrowing and spondylosis at the C4-C5 and C5-C6 levels. Electronically Signed: Adrian Foster MD at 8:24 EST ,
--- NOTE | 2022-09-28 07:39 | RAD_ITS ---
STUDY: X-RAY - LUMBAR SPINE REASON FOR EXAM: Male, 62 years old. Injury/Pain TECHNIQUE: 3 view(s) of the lumbar spine were obtained. COMPARISON: Comparison is made with prior study dated 07/26/2020. FINDINGS: Normal lumbar lordosis. There is a mild dextroscoliosis of the lumbar spine. There is a normal alignment of the vertebrae. There is multilevel endplate spondylosis of the lumbar vertebrae. There is multi-level degenerative disc disease with multi-level disc space narrowing. The patient is status post laminectomy at the L3-L4 and L4-L5 levels. Facet joint osteoarthritis. Large amount of fecal material is seen throughout the colon. Findings suggestive of a 3 mm calculus in the midportion of the right kidney. RAD/Lumbar Spine 2 or 3 Views IMPRESSION: Degenerative changes of the spine, as detailed above. Stable examination. Electronically Signed: Adrian Foster MD at 8:34 EST ,
--- NOTE | 2022-09-28 07:39 | CT_ITS ---
STUDY: CT BRAIN WITHOUT CONTRAST REASON FOR EXAM: Male, 62 years old. Injury/Pain due to a fall. RADIATION DOSAGE (If Supplied By Facility): CTDIvol = ( 44.99 ) mGy, DLP = ( 846.73 ) mGycm TECHNIQUE: Transaxial CT imaging of the brain was performed without administration of intravenous contrast material. Individualized dose optimization techniques were used for this CT. COMPARISON: No relevant priors. FINDINGS: Normal soft tissue structures. Normal calvarium. There is mild cerebral atrophy with widening of the extra-axial spaces and ventricular dilatation. Normal white matter tracts of the cerebral hemispheres. Normal basal ganglia and thalami. Normal brainstem. Normal cerebellum. There is no intracranial hemorrhage. There are no findings of an acute ischemic infarction. Normal visualized paranasal sinuses. CT/Brain/Head without Contrast IMPRESSION: Chronic involutional changes of the brain. Electronically Signed: Adrian Foster MD at 8:07 EST ,
--- NOTE | 2022-09-28 07:40 | ED.VIS.FALL ---
HPI HPI - Fall History of Present Illness Chief Complaint: Fall Informant: patient Narrative Narrative: Patient is a 62-year-old male with history of spinal surgery at [facility] with chronic wound on his back that is cared for by wound care/home health. He is presenting after a fall. Patient states he hurts at the outside and when he went to check he walked down the one step on the cement pad and somehow slipped and fell. He fell backwards. He did hit the back of his head. He states he does have some pain in the back of his head but also wants to make sure that his lumbar spine is okay since he had this recent surgery and he did hit the area. Denies any significant pain at this time. Has some chronic paresthesias of his right thigh which are unchanged. No other injuries. Is on any blood thinners. Does not report any loss of consciousness. No other complaints at this time. [facility] Medical History Arthritis Home Medications gabapentin 400 mg capsule 600 mg PO TID 07/26/20 [History Last Taken Unknown] acetaminophen 325 mg tablet (Tylenol) 325 mg PO Q6H PRN Pain 05/12/22 [History Last Taken Unknown] cephalexin 500 mg capsule 500 mg PO Q6 #40 caps 05/12/22 [Rx Last Taken Unknown] furosemide 20 mg tablet 20 mg PO DAILY 09/28/22 [History Last Taken Unknown] methocarbamol 750 mg tablet 750 mg PO Q6H 09/28/22 [History Last Taken Unknown] tamsulosin 0.4 mg capsule 0.4 mg PO DAILY 09/28/22 [History Last Taken Unknown] Allergy/AdvReac Type Severity Reaction Status Date / Time No Known Allergies Allergy Verified 09/22/22 08:15 Family History Other CVA (cerebral vascular accident) Cancer Diabetes Social History Smoking Status: Never smoker alcohol intake: never ROS ROS ED Constitutional Constitutional ED: Denies chills or fever(s) Eyes Eyes: Denies change in vision ENT ENT ED: Denies ear pain Cardiovascular Cardiovascular: Denies chest pain Respiratory/Chest Respiratory/Chest: Denies cough Gastrointestinal Gastrointestinal: Denies nausea or vomiting Musculoskeletal Musculoskeletal: Reports back pain and neck pain Neurologic Neurologic: Reports headache(s) and paresthesias; Denies weakness Psychiatric Psychiatric: Denies anxiety Hematologic/Lymphatic Hematologic/Lymphatic: Denies easy bruising EXAM Physical Exam Const Vital Signs: 09/28/22 07:22 09/28/22 09:07 Temperature 96.2 F L Temperature Source Temporal Pulse Rate 69 82 Respiratory Rate 18 16 Blood Pressure 144/89 H 138/77 H Blood Pressure Mean 107 Pulse Ox 97 97 Oxygen Delivery Method Room Air Positive well nourished and well developed General Appearance ED: well developed and NAD HEENT Reports normocephalic HEENT Narrative: Cerumen impaction in the right ear unable to visualize panic membrane. Normal left tympanic membrane. No epistaxis or rhinorrhea present. No malocclusion. atraumatic; Negative for hematoma Eyes PERRL and EOMs intact bilaterally Neck full ROM and supple General: Negative for tenderness Chest Wall inspection of chest normal and palpation of chest normal Resp normal respiratory effort Cardio regular rate, regular rhythm and no murmurs GI non-tender and non-distended Back/Spine Back/Spine Narrative: Lumbar midline surgical incision with a 1 cm chronic appearing wound that is draining some serous fluid. No surrounding erythema, purulence or other signs of infection. No significant tenderness of the paraspinal region. Normal range of motion. Cervical Spine: Negative for cervical spine tenderness Thoracic Spine / Upper Back: Negative for ROM limited Lumbar Spine / Lower Back: Negative for lumbar spinal tenderness or paraspinal muscle tenderness Neuro oriented x3, CN's II-XII intact bilaterally, moves all extremities and no focal motor deficits Neuro Narrative: Subjective paresthesias of the right inner thigh, chronic per patient [place] Coma Scale: document GCS findings Spontaneous Obeys Commands Oriented 15 Sensorium / Orientation: alert Skin Skin Narrative: Chronic wound of the lumbar spine approximately level of L 3. Does not appear infected. Rashes: no rashes Trauma: Negative for abrasion or laceration MDM MDM MDM Narrative Medical decision making narrative: Patient evaluated after mechanical fall. No reported loss of consciousness. CT of the head is obtained as well as x-ray of the C-spine and x-ray of the lumbar spine to ensure there is no acute fracture or intracranial trauma. No signs of lacerations, abrasions or contusions on physical exam. These are negative patient can be discharged home. CT brain shows chronic changes but no acute process. X-ray of the lumbar and cervical spine to read by myself as well as radiology shows no acute fracture. Patient will be discharged home. He has gabapentin and Tylenol to take at home. Patient able to ambulate. Has assistive devices at home to use as needed. Radiography Diagnostic Testing: Clinical Impression(s) from Imaging Studies Brain CT 09/28/22 07:39 IMPRESSION: Chronic involutional changes of the brain. Electronically Signed: Adrian Foster MD at 8:07 EST , Cervical Spine X-Ray 09/28/22 07:39 IMPRESSION: Straightening of the normal cervical lordosis. Disc space narrowing and spondylosis at the C4-C5 and C5-C6 levels. Electronically Signed: Adrian Foster MD at 8:24 EST , Lumbar Spine X-Ray 09/28/22 07:39 IMPRESSION: Degenerative changes of the spine, as detailed above. Stable examination. Electronically Signed: Adrian Foster MD at 8:34 EST , Discharge Plan Triage Chief Complaint: Fall Other Complaint: Back ED Provider: Audrey Augustin Dx/Rx/DC Orders Clinical Impression: Fall, Closed head injury, Cervical muscle strain, Wound of back Instructions: ED Back Contusion, ED Mechanical Fall, ED Neck Sprain or Strain Prescriptions: No Action gabapentin 400 MG capsule 600 mg PO TID acetaminophen [Tylenol] 325 mg Tablet 325 mg PO Q6H PRN (Reason: Pain) cephalexin 500 mg capsule 500 mg PO Q6 Qty: 40 0RF methocarbamol 750 mg tablet 750 mg PO Q6H Label Comments: take 1 tablet by mouth four times a day tamsulosin 0.4 mg capsule 0.4 mg PO DAILY furosemide 20 mg tablet 20 mg PO DAILY Primary Care Provider: Care Physician,No Primary Referrals: Care Physician,No Primary [Primary Care Provider] - Activity Restrictions/Additional Instructions: Please follow-up with your primary care doctor. There does not appear to be any acute fracture or injury from your fall today. You likely will be sore. Continue taking her Tylenol and other medications as needed. Follow-up with your primary care doctor. Disposition Disposition: Home, Self Care Discharge Date/Time: 09/28/22 09:08
[2022-09-28 09:07] VITALS: BP 138/77; PULSE 82; RESP 16; O2SAT 97
== END 2022-09-28 09:08 | disposition home or self-care (01) ==
PROVIDERS: Emergency Provider Emergency Medicine; Visit Provider Emergency Medicine
DX: S09.90XA Unspecified injury of head, initial encounter (principal); S16.1XXA Strain of muscle, fascia and tendon at neck level, initial encounter; W10.9XXA Fall (on) (from) unspecified stairs and steps, initial encounter; Z79.899 Other long term (current) drug therapy
CPT/HCPCS: 70450; 72040; 72100; 99282

== ENCOUNTER 2022-12-30 03:50 | Emergency (ER) | payer MEDICARE, SELFPAY ==
[2022-12-30 03:50] VITALS: BP 122/85; PULSE 90; RESP 97; TEMP 36.5; BMI 25.6
--- NOTE | 2022-12-30 04:21 | EDS_ITS ---
HPI History of Present Illness Chief Complaint: Back Narrative Narrative: 62-year-old male with acute on chronic back pain. Patient states he woke up yesterday morning around 7 with right sided back pain. Its aching in nature. It is worse when he tries to get up and move. He denies any trauma. No loss of bladder or bowel control. No saddle anesthesia/paresthesia. Patient is seen a specialist up in [facility]. He has had surgery on his lumbar spine but he cannot tell me what he had done. He states that he has a home health care nurse who comes out and changes his dressing and applies a medication which she does not know what it was called. [facility] Medical History Arthritis Home Medications gabapentin 400 mg capsule 600 mg PO TID 07/26/20 [History Last Taken Unknown] acetaminophen 325 mg tablet (Tylenol) 325 mg PO Q6H PRN Pain 05/12/22 [History Last Taken Unknown] cephalexin 500 mg capsule 500 mg PO Q6 #40 caps 05/12/22 [Rx Last Taken Unknown] methocarbamol 750 mg tablet 750 mg PO Q6H 09/28/22 [History Last Taken Unknown] tamsulosin 0.4 mg capsule 0.4 mg PO DAILY 09/28/22 [History Last Taken Unknown] hydrocodone-acetaminophen 5-325mg 5mg-325mg 1 tab PO Q6H PRN PRN Pain 1 day #4 TABLETS 12/30/22 [Rx Last Taken Unknown] Allergy/AdvReac Type Severity Reaction Status Date / Time No Known Allergies Allergy Verified 09/22/22 08:15 Family History Other CVA (cerebral vascular accident) Cancer Diabetes Social History Smoking Status: Never smoker alcohol intake: never ROS ROS ED Constitutional Constitutional ED: Denies chills or fever(s) Eyes Eyes: Denies change in vision or diplopia ENT ENT ED: Denies rhinorrhea or sore throat Cardiovascular Cardiovascular: Denies chest pain or palpitations Respiratory/Chest Respiratory/Chest: Denies dyspnea or dyspnea on exertion Gastrointestinal Gastrointestinal: Denies abdominal pain or constipation Musculoskeletal Musculoskeletal: Reports back pain Integumentary Denies abscess or Abrasions Neurologic Neurologic: Denies headache(s) or paresthesias Psychiatric Psychiatric: Denies anxiety or depression EXAM Physical Exam Const Vital Signs: 12/30/22 03:50 12/30/22 05:49 Temperature 97.7 F L Temperature Source Oral Pulse Rate 90 47 L Respiratory Rate 97 H 15 Blood Pressure 122/85 H 124/85 H Blood Pressure Mean 97 98 Pulse Ox 96 Oxygen Delivery Method Room Air Room Air Positive well nourished General Appearance ED: NAD HEENT Reports moist mucous membranes Eyes PERRL Resp normal respiratory effort and clear to auscultation bilaterally Auscultation: Negative for rales, rhonchi or wheezes Cardio regular rate and regular rhythm GI normal to inspection, nondistended, normoactive bowel sounds Back/Spine Back/Spine Narrative: Right lumbar paraspinal musculature tenderness. There is a midline dressing which is clean dry and intact. No tenderness noted over this. No erythema or e christy surrounding this. Extremity normal to inspection Neuro oriented x3 Sensorium / Orientation: alert Skin Skin Narrative: As documented above MDM MDM MDM Narrative Medical decision making narrative: Patient presenting with acute on chronic back pain. I suspect this is likely musculoskeletal but I will obtain basic lab work and urinalysis. Patient medicated with morphine, Zofran, Toradol. CBC shows no white count. Hemoglobin macular stable. Platelets are normal. Renal function and electrolytes unremarkable. Urinalysis negative. Patient ambulated well after being medicated. I do not believe needs any further lab work or imaging. He will be discharged home with short supply of Strong. I recommend that he follow-up with his regular doctor to ensure resolution. Impression: 1. Acute exacerbation of chronic back pain Lab Data Attestation: I reviewed the patient's lab results. Labs: Laboratory Results - last 24 hr 12/30/22 12/30/22 12/30/22 04:38 04:45 04:45 WBC 8.7 RBC 4.87 Hgb 14.4 Hct 44.8 MCV 92.0 MCH 29.6 MCHC 32.1 RDW Std Deviation 46.3 H RDW Coeff of Coleen 13.6 Plt Count 198 MPV 12.0 Immature Gran % (Auto) 0.500 Neut % (Auto) 70.8 H Lymph % (Auto) 14.9 L Lyon % (Auto) 12.6 H Eos % (Auto) 1.0 Baso % (Auto) 0.2 Absolute Neuts (auto) 6.2 Absolute Lymphs (auto) 1.30 Nucleated RBC % 0 Sodium 141 Potassium 3.4 L Chloride 110 H Carbon Dioxide 24.0 Anion Gap 7 BUN 22 H Creatinine 1.09 Estim Creat Clear Calc 64.01 Est GFR (MDRD) Af Amer 88 Est GFR (MDRD) Non-Af 72 BUN/Creatinine Ratio 20.2 H Glucose 100 Calcium 8.6 Urine Color Yellow Urine Clarity Clear Urine pH 5.0 Ur Specific [place] 1.025 Urine Protein 15 H Urine Glucose (UA) Normal Urine Ketones 5 H Urine Occult Blood 10 H Urine Nitrite Negative Urine Bilirubin Negative Urine Urobilinogen Normal Ur Leukocyte Esterase 25 H Urine RBC 0-5 SEEN Urine WBC 5-10 SEEN Ur Squamous Epith Cells 0 SEEN Urine Bacteria 0 SEEN Urine Mucus 0 SEEN Discharge Plan Triage Chief Complaint: Back ED Provider: Quentin Arreola Dx/Rx/DC Orders Instructions: ED Back Pain (Acute or Chronic) Prescriptions: New hydrocodone-acetaminophen 5-325 mg tablet 1 tab PO Q6H PRN PRN (Reason: Pain) 1 Days Qty: 4 0RF No Action gabapentin 400 MG capsule 600 mg PO TID acetaminophen [Tylenol] 325 mg Tablet 325 mg PO Q6H PRN (Reason: Pain) cephalexin 500 mg capsule 500 mg PO Q6 Qty: 40 0RF methocarbamol 750 mg tablet 750 mg PO Q6H Label Comments: take 1 tablet by mouth four times a day tamsulosin 0.4 mg capsule 0.4 mg PO DAILY Primary Care Provider: Care Physician,No Primary Referrals: Care Physician,No Primary [Primary Care Provider] - Disposition Disposition: Home, Self Care
[2022-12-30] MEDS: Ondansetron 4 MG/2 ML Vial IV (04:44)
[2022-12-30] MEDS: Ketorolac 15 MG/ML Vial IV (04:45)
[2022-12-30] MEDS: Morphine 4 MG/ML Syringe IV (04:47)
[2022-12-30 04:50] LABS: Bacteria 0 SEEN /hpf (None Seen); Mucous, Urine 0 SEEN /hpf (<or=2+); Squamous Epithelial Cells - UA 0 SEEN /hpf (0-5)
[2022-12-30 04:57] LABS: Absolute Neutrophil Count 6.2 X10^3/uL (2.0-7.7); Basophil# 0.02 X10^3/uL; Basophil% 0.2 % (0-1); Eosinophil# 0.09 X10^3/uL; Hematocrit 44.8 % (40-54); Hemoglobin 14.4 g/dL (13.0-16.5); Lymphocyte % 14.9 % (19-41); Mean Corp Hgb Conc 32.1 g/dL (32-36); Mean Corpuscular Hgb 29.6 pg (27.0-32.0); Monocyte% 12.6 % (0-10); NRBC Flagged by Analyzer 0 % (0-5); Neutrophil # 6.17 X10^3/uL (2.7-7.7); Neutrophil % 70.8 % (47-70); Platelet Count 198 K/mm3 (150-450); RBC Distribution Width CV 13.6 % (11.6-14.6); RBC Distribution Width SD 46.3 fl (35.1-43.9); Red Blood Count 4.87 M/mm3 (4.6-6.2); White Blood Count 8.7 K/mm3 (4.4-11.0)
[2022-12-30 05:03] LABS: Color, Urine Yellow (Yellow); Glucose, Dipstick Normal (Normal); Ketone-Dipstick 5 mg/dl (Negative); Leukocyte Esterase-Dipstick 25 /ul (Negative); Nitrite-Dipstick Negative (Negative); Occult Blood-Urine 10 /ul (Negative); Protein-Dipstick 15 mg/dl (Negative); Specific Gravity, Urine 1.025 (1.002-1.030); Urine Bilirubin Dipstick Negative (Negative); Urine Clarity Clear (Clear); Urine Urobilinogen Normal (Normal)
[2022-12-30 05:33] LABS: Anion Gap 7 (5-15); BUN 22 mg/dL (7-18); BUN/Creat Ratio 20.2 RATIO (10-20); Calcium,Total 8.6 mg/dL (8.5-10.1); Chloride 110 mmol/L (98-107); Creatinine, Serum 1.09 mg/dL (0.70-1.30); EST Glomerular Filtration Rate 72 mL/min (>60); Est Glom Filt Rate - Afr Amer 88 mL/min (>60); Estimated Creatinine Clearance 64.01 ml/min; Glucose 100 mg/dL (74-106); Potassium 3.4 mmol/L (3.5-5.1); Sodium Level 141 mmol/L (136-145)
[2022-12-30 05:44] LABS: Red Blood Cells-Urine 0-5 SEEN /hpf (0-5); White Blood Cells 5-10 SEEN /hpf (0-5)
[2022-12-30 05:49] VITALS: BP 124/85; PULSE 47; RESP 15; O2SAT 96
[2022-12-30 07:53] VITALS: BP 124/77; PULSE 62; RESP 15; O2SAT 98
== END 2022-12-30 07:55 | disposition home or self-care (01) ==
PROVIDERS: Emergency Provider Student in an Organized Health Care Education/Training Program; Visit Provider Student in an Organized Health Care Education/Training Program
DX: M54.9 Dorsalgia, unspecified (principal); G89.29 Other chronic pain; Z79.899 Other long term (current) drug therapy
CPT/HCPCS: 80048; 81001; 85025; 96374; 96375; 99283; A4216; J2405

== ENCOUNTER 2024-06-09 16:52 | Emergency (ER) | payer MEDICARE, SELFPAY ==
[2024-06-09 16:52] VITALS: BP 177/102; PULSE 82; RESP 16; TEMP 36.7; O2SAT 98
--- NOTE | 2024-06-09 17:02 | CT_ITS ---
STUDY: CT BRAIN WITHOUT CONTRAST REASON FOR EXAM: Male, 63 years old. fall RADIATION DOSAGE (If Supplied By Facility): CTDIvol = ( 44.99 ) mGy, DLP = ( 829.85 ) mGycm TECHNIQUE: Transaxial CT imaging of the brain was performed without administration of intravenous contrast material. Individualized dose optimization techniques were used for this CT. COMPARISON: 09/28/2022 FINDINGS: Normal soft tissue structures. Normal calvarium. There is mild cerebral atrophy with widening of the extra-axial spaces and ventricular dilatation. There are areas of decreased attenuation within the white matter tracts of the supratentorial brain, consistent with microvascular disease changes. Normal basal ganglia and thalami. Normal brainstem. There is mild cerebellar atrophy. There is no intracranial hemorrhage. There are no findings of an acute ischemic infarction. Normal visualized paranasal sinuses. CT/Brain/Head without Contrast IMPRESSION: Chronic involutional changes of the brain. No change and no acute abnormality. Electronically Signed: Cb Abarca MD at 17:47 EST ,
--- NOTE | 2024-06-09 17:02 | CT_ITS ---
STUDY: CT CERVICAL SPINE WITHOUT CONTRAST REASON FOR EXAM: Male, 63 years old. fall RADIATION DOSAGE (If Supplied By Facility): CTDIvol = ( 20.06 ) mGy, DLP = ( 404.51 ) mGycm TECHNIQUE: High resolution transaxial imaging was performed without contrast material. Sagittal and coronal images were reconstructed. Individualized dose optimization techniques were used for this CT. COMPARISON: None FINDINGS: No definite acute fracture/dislocation. The cervical junction is intact. C1-C2 articulation is intact. Curvature is within normal limits. There is normal alignment. Facet joints are intact at all levels bilaterally. No jumped facets. There is multilevel spondyloarthropathy. Multilevel degenerative disc disease seen. Multilevel loss of disc height. Multilevel posterior marginal osteophytes and disc bulges. Multilevel neural foraminal narrowing. Multilevel narrowing of the spinal canal. Visualized paraspinal soft tissues and structures are unremarkable. CT/Spine Cervical without Contras IMPRESSION: There is no definite acute fracture/dislocation. Degenerative changes. Electronically Signed: Cb Abarca MD at 17:49 EST ,
--- NOTE | 2024-06-09 20:03 | EKG12_ITS ---
Test Reason : DYSRHYTHMIA Blood Pressure : */* mmHG Vent. Rate : 69 BPM Atrial Rate : 69 BPM P-R Int : 128 ms QRS Dur : 88 ms QT Int : 414 ms P-R-T Axes : 6 -10 10 degrees QTcB Int : 443 ms Normal sinus rhythm Minimal voltage criteria for LVH, may be normal variant ( R in aVL ) Borderline ECG When compared with ECG of 12-Apr-2022 22:10, No significant change was found Confirmed by Manny Anderson ([id number]), commercial production editor TACOS SOLORZANO ([id number]) on 06/11/2024 10:03:56 AM Referred By: Confirmed By: Manny Anderson
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
[2024-06-09 20:37] LABS: Bacteria 0 SEEN /hpf (None Seen); Squamous Epithelial Cells - UA 0 SEEN /hpf (0-5)
[2024-06-09 20:40] LABS: Color, Urine Yellow (Yellow); Glucose, Dipstick Normal (Normal); Ketone-Dipstick Negative (Negative); Leukocyte Esterase-Dipstick 25 /ul (Negative); Nitrite-Dipstick Negative (Negative); Occult Blood-Urine 10 /ul (Negative); Protein-Dipstick 30 mg/dl (Negative); Urine Bilirubin Dipstick Negative (Negative); Urine Clarity Clear (Clear); Urine Urobilinogen Normal (Normal)
[2024-06-09] MEDS: Acetaminophen 500 MG Tablet PO (20:49)
[2024-06-09 20:52] VITALS: BP 142/71; PULSE 78; RESP 16; O2SAT 97
[2024-06-09 20:53] LABS: Mucous, Urine RARE /hpf (<or=2+); Red Blood Cells-Urine 0-5 SEEN /hpf (0-5); White Blood Cells 0-5 SEEN /hpf (0-5)
--- NOTE | 2024-06-09 21:00 | RAD_ITS ---
STUDY: X-RAY CHEST REASON FOR EXAM: Male, 63 years old. syncope TECHNIQUE: Single AP portable view of the chest.] COMPARISON: 04/12/2022 FINDINGS: Normal lung volumes. Mild streaky densities in both lung bases suggestive of scarring or subsegmental atelectasis. Normal size heart. Normal mediastinum and [place]. Normal visualized pulmonary arteries. Normal visualized aortic arch and descending thoracic aorta. Normal visualized thoracic spine. Normal visualized ribs, clavicles, and shoulders. There is no demonstrated abnormality of the visualized soft tissue structures of the upper abdomen. RAD/Chest 1 View (Portable) IMPRESSION: Mild scarring or subsegmental atelectasis of the lung bases. Electronically Signed: Cb Abarca MD at 21:56 EST ,
[2024-06-09] MEDS: Lidocaine/Epi/Tetracaine 50 ML 1 APPLIC TOPICAL (21:07)
[2024-06-09] MEDS: Diphth,Pertuss(Acell),Tet Vac 0.5 ML Vial IM (21:07)
[2024-06-09 21:09] LABS: Absolute Lymphocyte Count 1.98 X10^3/uL (0.83-4.51); Absolute Neutrophil Count 7.3 X10^3/uL (2.0-7.7); Basophil# 0.04 X10^3/uL; Basophil% 0.4 % (0-1); Eosinophil# 0.07 X10^3/uL; Eosinophils% 0.7 % (0-5); Hematocrit 45.2 % (40-54); Hemoglobin 14.9 g/dL (13.0-16.5); Lymphocyte # 1.98 X10^3/ul (0.83-4.51); Lymphocyte % 19.1 % (19-41); Mean Corpuscular Hgb 30.4 pg (27.0-32.0); Mean Corpuscular Volume 92.2 fL (80-94); Monocyte# 0.87 X10^3/uL; Monocyte% 8.4 % (0-10); NRBC Flagged by Analyzer 0 % (0-5); Neutrophil # 7.31 X10^3/uL (2.7-7.7); Neutrophil % 70.7 % (47-70); Platelet Count 229 K/mm3 (150-450); RBC Distribution Width CV 12.7 % (11.6-14.6); White Blood Count 10.3 K/mm3 (4.4-11.0)
[2024-06-09 21:28] LABS: Anion Gap 6 (5-15); BUN 16 mg/dL (7-18); Calcium,Total 8.6 mg/dL (8.5-10.1); Chloride 108 mmol/L (98-107); Creatinine, Serum 0.67 mg/dL (0.70-1.30); EST Glomerular Filtration Rate 127 mL/min (>60); Est Glom Filt Rate - Afr Amer 153 mL/min (>60); Glucose 104 mg/dL (74-106); Potassium 3.7 mmol/L (3.5-5.1); Sodium Level 139 mmol/L (136-145); Troponin-I HS 6 pg/mL (3.0-78.0)
[2024-06-09 22:31] VITALS: BMI 28.3
[2024-06-09 22:39] VITALS: BP 138/70; PULSE 80; RESP 16; O2SAT 97
[2024-06-09] MEDS: Gabapentin 300 MG Capsule 600 MG PO (23:03)
[2024-06-09 23:50] VITALS: BP 138/72; PULSE 84; RESP 16; TEMP 36.7; O2SAT 97
== END 2024-06-09 23:51 | disposition home or self-care (01) ==
PROVIDERS: Emergency Provider Emergency Medicine; Visit Provider Emergency Medicine
DX: S01.01XA Laceration without foreign body of scalp, initial encounter (principal); W19.XXXA Unspecified fall, initial encounter; R53.81 Other malaise; R53.1 Weakness; R42 Dizziness and giddiness; M19.90 Unspecified osteoarthritis, unspecified site; Z79.899 Other long term (current) drug therapy
CPT/HCPCS: 12002; 70450; 71045; 72125; 80048; 81001; 84484; 85025; 90715; 93005; 99285; A4216

== ENCOUNTER 2024-12-30 10:52 | Emergency (ER) | payer MEDICARE, SELFPAY ==
[2024-12-30 10:53] VITALS: BP 191/97; PULSE 84; RESP 20; TEMP 36.8; O2SAT 96
--- NOTE | 2024-12-30 11:32 | EX.ED.DYSGE1 ---
HPI History of Present Illness Chief Complaint: Cellulitis Narrative Narrative: 64-year-old male with a past medical history of chronic back pain presents with rash on his bilateral lower extremities that has had for the last few days. He denies any fevers or chills but states he may have felt warm over the last few days. No drainage. He states that his niece used to be a nurse and told him that he needed to come to the emergency department for antibiotics because he has cellulitis. PFSH PFSH Medical History Back pain with history of spinal surgery Kidney stones Kidney disease GERD (gastroesophageal reflux disease) Arthritis Home Medications ?Medication ?Instructions ?Recorded ?Last Taken ?Type gabapentin 400 mg capsule 600 mg PO TID 07/26/20 Unknown History acetaminophen 325 mg tablet 1,000 mg PO .qid PRN Pain 05/12/22 Unknown History (Tylenol) cephalexin 500 mg capsule 500 mg PO Q6 #40 caps 05/12/22 Unknown Rx methocarbamol 750 mg tablet 750 mg PO Q6H 09/28/22 Unknown History tamsulosin 0.4 mg capsule 0.4 mg PO DAILY 09/28/22 Unknown History hydrocodone-acetaminophen 5-325mg 1 tab PO Q6H PRN PRN Pain 1 day #4 12/30/22 Unknown Rx 5mg-325mg TABLETS cephalexin 500 mg capsule 500 mg PO Q6H 10 days #40 caps 12/30/24 Unknown Rx Allergy/AdvReac Type Severity Reaction Status Date / Time No Known Allergies Allergy Verified 12/30/24 10:55 Family History Other CVA (cerebral vascular accident) Cancer Diabetes Surgical History History of hernia surgery Social History Smoking Status: Never smoker alcohol intake: never ROS ROS ED ROS Narrative Review of systems positive for bilateral lower extremity redness. No fevers or chills. No nausea or vomiting. No drainage from legs. EXAM Physical Exam Narrative Exam Narrative: Afebrile. Vital signs noted. Nontoxic-appearing. Cardiovascular examination feels a regular rate and rhythm. Lungs are clear to auscultation bilaterally. Abdomen is soft, nontender without guarding or rebound. Neurological examination shows him to be awake, alert, oriented. Inspection of the bilateral lower extremities shows erythema mainly around the right ankle. It is not circumferential. He has palpable dorsalis pedis pulses bilaterally. There is a small area on the anterior tibial surface distally of the left leg in the sock line as well but not as pronounced as the right. Const Vital Signs: 12/30/24 10:53 12/30/24 11:52 Temperature 98.3 F 98.1 F Temperature Source Oral Pulse Rate 84 81 Respiratory Rate 20 H 18 Blood Pressure 191/97 H 177/84 H Blood Pressure Mean 128 115 Pulse Ox 96 94 Oxygen Delivery Method Room Air MDM MDM MDM Narrative Medical decision making narrative: Differential diagnosis includes but not limited to epidermal abrasion versus cellulitis versus DVT. His symptoms are bilateral so I doubt DVT and I do not feel ultrasound is indicated as there is no overt swelling of the foot bilaterally. He does have bilateral dorsalis pedis pulses that are palpable so I doubt any arterial obstruction. At this point in time, I do not feel he requires laboratory work. He was started on cephalexin which he has taken previously and given a prescription to take 4 times a day for the next 10 days. He will follow-up with his primary care provider. I do feel he merits outpatient antibiotic trial. He was able to ambulate in the emergency department with his cane. Return instructions to the emergency department were reviewed. Disposition is discharged home in stable condition. History & Record Review Discussion w/independent historian: Patient Discharge Plan Triage Chief Complaint: Cellulitis ED Provider: Golden Moyer Dx/Rx/DC Orders Clinical Impression: Cellulitis Instructions: ED Cellulitis Prescriptions: New cephalexin 500 mg capsule 500 mg PO Q6H 10 Days Qty: 40 0RF No Action gabapentin 400 MG capsule 600 mg PO TID acetaminophen [Tylenol] 325 mg Tablet 1,000 mg PO .qid PRN (Reason: Pain) cephalexin 500 mg capsule 500 mg PO Q6 Qty: 40 0RF methocarbamol 750 mg tablet 750 mg PO Q6H Patient Comments: take 1 tablet by mouth four times a day tamsulosin 0.4 mg capsule 0.4 mg PO DAILY hydrocodone-acetaminophen 5-325 mg tablet 1 tab PO Q6H PRN PRN (Reason: Pain) 1 Days Qty: 4 0RF Primary Care Provider: Care Physician,No Primary Referrals: Care Physician,No Primary [Primary Care Provider] - Activity Restrictions/Additional Instructions: Antibiotics as directed. Elevate your feet when possible. Return with fever, increased redness of your legs, new or worsening symptoms. Follow-up with your primary care provider. Print Language: And[place] Disposition Disposition: Home, Self Care Discharge Date/Time: 12/30/24 11:52
[2024-12-30] MEDS: Cephalexin 250 MG Capsule 500 MG PO (11:50)
[2024-12-30 11:52] VITALS: BP 177/84; PULSE 81; RESP 18; TEMP 36.7; O2SAT 94
== END 2024-12-30 11:52 | disposition home or self-care (01) ==
LOC: ED 11:48
PROVIDERS: Emergency Provider Emergency Medicine; Visit Provider Emergency Medicine
DX: L03.115 Cellulitis of right lower limb (principal); L03.116 Cellulitis of left lower limb; M54.9 Dorsalgia, unspecified; G89.29 Other chronic pain; Z79.899 Other long term (current) drug therapy
CPT/HCPCS: 99282